=== PATIENT | male | born 1985 | race Caucasian/White ===

== ENCOUNTER 2017-06-28 19:07 | Emergency (ER) | payer OTHER ==
[2017-06-28 19:17] VITALS: BP 136/82
--- NOTE | 2017-06-28 19:34 | EDPHY ---
H & P Time Seen by Provider: 06/28/17 19:08 HPI/ROS: HPI Right wrist injury. 32-year-old male by private vehicle. He is right-hand dominant. This patient reports that for the last 3-4 days he has had pain in the dorsal radial aspect of his right distal wrist. He reports having some tingling in his right thumb as well today. He works out avidly. He reports that he was doing pull-ups and he noticed the tingling in his thumb after doing that today. He denies any specific traumatic event but states that he is very active with his working out and may have injured few days ago. He reports also feeling a crepitus like sensation in his wrists with Rahman flexion and palmar flexion. No other injury or complaint. ROS: Constitutional: No fever, no chills. No weakness. Musculoskeletal: No back pain. No neck pain. No shoulder pain. As above. Skin: No rashes. No lacerations or abrasions. Neurological: No headache. No focal weakness. As above. Past medical history: No significant past medical history. No prescription medications. Social history: Nonsmoker. Drinks alcohol occasionally. [employer]. Physical Exam: General Appearance: Alert, no distress. This patient is responding to questions appropriately and in full sentences. This patient appears well- hydrated and well-nourished. Eyes: Pupils equal and round no pallor or injection. No lid edema, erythema or injection. Right hand and wrist exam: No pain on axial compression of the thumb. He does have some mild to moderate snuffbox tenderness. No bony deformity obvious on gross inspection of the right hand and right wrist. No pain on axial compression of digits 2 through 5. The right hand is neurovascularly intact. Radial, ulnar and median nerve distributions are intact in all myotomes in dermatomes. Neurological: Motor sensory function is grossly intact. Cranial nerves are normal. Gait is normal. Skin: Warm and dry, no rashes. Musculoskeletal: Neck is supple and nontender. No midline cervical, thoracic tenderness on palpation. Extremities are symmetrical. All joints range without pain or impingement. Psychiatric: No agitation. No depression. Database: EKG: Imaging: Right wrist x-ray series: Negative for fracture, subluxation, dislocation. Interpreted by me. Procedures: Emergency department course: After my evaluation, I discussed getting x-rays of the right wrist. He endorses this plan. Vital signs reviewed and are normal. 7:40 p.m., patient re-evaluated. Resting comfortably at this time. Results of his x-rays discussed with him. No bony injury to explain his complaint. I discussed the possibility of a peripheral neuropathy or peripheral radial nerve impingement syndrome. I discussed MRI imaging but I explained that at this time was not emergently indicated. Patient was fitted with a Velcro wrist splint for comfort. He agrees to follow up with his primary care physician at the [facility] in 2-3 days to be re- evaluated. More advanced imaging can be obtained at that time as needed. He feels comfortable going home. He understands his follow-up. Return to emergency department precautions reviewed. All of his questions were answered. He was discharged in good condition. Differential Diagnosis: The differential diagnosis on this patient includes but is not limited to peripheral neuropathy, arthritis. Fracture, subluxation, dislocation, cervical spine injury with radiculopathy, brachial plexus injury unlikely. This represents a partial list of diagnoses considered. These considerations are based on history, physical exam, past history, reassessment and diagnostic testing. Smoking Status: Former smoker Constitutional: Initial Vital Signs Temperature (C) 37.2 C 06/28/17 19:13 Heart Rate 68 06/28/17 19:13 Respiratory Rate 16 06/28/17 19:13 Blood Pressure 136/82 H 06/28/17 19:13 O2 Sat (%) 99 06/28/17 19:13 O2 Delivery Mode Room Air Allergies/Adverse Reactions: Sulfa (Sulfonamide Antibiotics) Allergy (Verified 06/28/17 19:18) Home Medications: Medication Instructions Recorded Diclofenac Sodium 06/28/17 Flexeril 10 MG (*) 06/28/17 Ibuprofen 06/28/17 Medical Decision Making - Diagnostics Imaging Results: Imaging Impressions Wrist X-Ray 06/28/17 19:27 Impression: Nothing acute identified. Departure - Departure Disposition: Home, Routine, Self-Care Clinical Impression: Right wrist pain Condition: Good Instructions: Wrist Injury (ED), Arthralgia (ED) Additional Instructions: Read and follow provided instructions. Follow-up with your primary care physician at the [facility] in 2-3 days. If needed more advanced imaging such as MRI can be obtained through your primary care physician. Ibuprofen dosin mg every 6 hours with meals for the next 3 days only. Take only as needed for pain. Return to the emergency department for worsening pain, weakness in your hand, loss of sensation, discoloration or other serious concerns. Referrals: NONE *PRIMARY CARE P,. [Primary Care Provider] - As per Instructions
== END 2017-06-28 20:07 | disposition home or self-care (01) ==
DX: S69.91XA Unspecified injury of right wrist, hand and finger(s), initial encounter (principal); Z87.891 Personal history of nicotine dependence; X50.9XXA Other and unspecified overexertion or strenuous movements or postures, initial encounter; Y99.8 Other external cause status; Y93.B2 Activity, push-ups, pull-ups, sit-ups
CPT/HCPCS: L3807